=== PATIENT | female | born 1960 | race Caucasian/White ===

== ENCOUNTER 2018-04-30 13:10 | Emergency (ER) | payer OTHER ==
[~2018-04-30] VITALS: Ht 154.9 cm; Wt 58.1 kg
[2018-04-30] MEDS ORDERED: predniSONE 50 MG TABLET ONE (13:59)
[2018-04-30] MEDS ORDERED: predniSONE 50 MG TABLET PO ONE (14:00)
--- NOTE | 2018-04-30 14:03 | NUR ---
Patient discharged to home in stable conditon. Written and verbal after care instructions given. Patient verbalizes understanding of instructions.PT WALKS IN STEADY GAIT.
== END 2018-04-30 14:04 | disposition home or self-care (01) ==
LOC: ER 13:10
DX: J45.909 Unspecified asthma, uncomplicated (principal); J18.8 Other pneumonia, unspecified organism; R42 Dizziness and giddiness
CPT/HCPCS: 99283; J7512; A4663

== ENCOUNTER 2018-10-09 08:44 | Emergency (ER) | payer OTHER ==
[~2018-10-09] VITALS: Ht 157.5 cm; Wt 61.2 kg
--- NOTE | 2018-10-09 08:59 | NUR ---
PATIENT WAS SEEN BY
--- NOTE | 2018-10-09 09:04 | NUR ---
DC, RX AND FOLLOW UP INSTRUCTIONS GIVEN AND EXPLAINED TO PATIENT WHO STATES SHE UNDERSTANDS ALL INSTRUCTIONS.
== END 2018-10-09 09:06 | disposition home or self-care (01) ==
LOC: ER 08:44
DX: J02.9 Acute pharyngitis, unspecified (principal); R09.81 Nasal congestion; Z90.49 Acquired absence of other specified parts of digestive tract
CPT/HCPCS: A4663

== ENCOUNTER 2018-10-15 20:17 | Emergency (ER) | payer SELFPAY ==
--- NOTE | 2018-10-15 21:02 | NUR ---
PATIENT LEFT WITHOUT BEING TRIAGED OR SEEN BY ER MD
== END 2018-10-15 21:03 | disposition left against medical advice (07) ==
LOC: ER 20:19
DX: Z53.21 Procedure and treatment not carried out due to patient leaving prior to being seen by health care provider (principal)

== ENCOUNTER 2021-03-18 22:47 | Emergency (ER) | payer OTHER ==
[~2021-03-18] VITALS: Ht 165.1 cm; Wt 55.8 kg
--- NOTE | 2021-03-19 | NUR ---
Aftre being triaged, patient will wait in her car for bed opening.
--- NOTE | 2021-03-19 00:43 | NUR ---
pt in room 3, Dr. Quintana in to speak with patient.
[2021-03-19] MEDS ORDERED: OXYC-128 PO (00:54)
[2021-03-19 01:28] VITALS: BP 125/79
--- NOTE | 2021-03-19 01:28 | NUR ---
Patient discharged to home in stable condition. Written and verbal after care instructions given. Patient verbalizes understanding of instructions. Stressed follow up or return to ER for worsening s/s.
== END 2021-03-19 01:29 | disposition home or self-care (01) ==
LOC: ER 22:50
DX: U07.1 COVID-19 (principal)
CPT/HCPCS: 87400; A4663